=== PATIENT | female | born 1980 | race Caucasian/White ===

== ENCOUNTER 2017-06-14 04:25 | Emergency (ER) | payer BC, MEDICAID ==
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
== END 2017-06-14 09:28 | disposition disaster alternative care site (69) ==
LOC: GACC 04:25
PROC: 0HQ0XZZ Repair Scalp Skin, External Approach (ICD-10-PCS; principal; 2017-06-14)
DX: S01.01XA Laceration without foreign body of scalp, initial encounter (principal); E03.9 Hypothyroidism, unspecified; Z88.2 Allergy status to sulfonamides; Z90.49 Acquired absence of other specified parts of digestive tract; Z90.89 Acquired absence of other organs; Z79.899 Other long term (current) drug therapy; Y08.09XA Assault by strike by other specified type of sport equipment, initial encounter
CPT/HCPCS: J0690